=== PATIENT | female | born 1940 | race American Indian/Alaskan Native ===

== ENCOUNTER 2017-02-10 01:58 | Emergency (ER) | payer SELFPAY ==
[2017-02-10] MEDS ORDERED: CATAPRES ONE (02:49)
[2017-02-10] MEDS ORDERED: CATAPRES PO ONE (02:50)
[2017-02-10 03:12] LABS: Basophils % (Auto) 1.1 % (0.0-1.8); Eosinophils % (Auto) 5.1 % (0.0-4.3); Hematocrit 44.3 % (30.3-42.9); Hemoglobin 14.9 gm/dl (10.1-14.3); Mean Corpuscular HGB Conc 34 % (30-34); Mean Corpuscular Hemoglobin 32 pg (28-32); Mean Corpuscular Volume 95 fl (79-97); Platelet Count 241 K/mm3 (140-440); Red Blood Count 4.64 M/mm3 (3.65-5.03); Red Cell Distribution Width 13.2 % (13.2-15.2); White Blood Count 7.2 K/mm3 (4.5-11.0)
[2017-02-10 04:22] LABS: BUN/Creatinine Ratio 17; Blood Urea Nitrogen 12 mg/dL (7-17); Calcium 9.7 mg/dL (8.4-10.2); Carbon Dioxide 23 mmol/L (22-30); Glucose 110 mg/dL (65-100); Sodium 136 mmol/L (137-145)
[2017-02-10 04:24] LABS: Anion Gap 23 mmol/L; Potassium 5.5 mmol/L (3.6-5.0)
[2017-02-10] MEDS ORDERED: KIONEX PO ONE (07:28)
--- NOTE | 2017-02-10 07:49 | Emergency Department Report ---
HPI - General Chief Complaint: BP Check / Ring removal req Time Seen by Provider: 02/10/17 07:13 - HPI HPI: This is a 76 year-old female presents to the emergency department with complaint of elevated blood pressure. The patient does have a previous history of hypertension and used to be on amlodipine 5 mg daily. However she has not had a primary care doctor or seen a doctor in about a year or so. She does not feel that her blood pressure was not elevated or that she needed the medication and stopped it on her own. Instead, she takes different vitamins and/or supplements. However the patient had some issues a few weeks ago with some chest discomfort that could've been esophageal issues and these issues have since resolved, except for it has made her more aware of her blood pressure. The blood pressure was getting up towards systolic 200 recently so she started taking her amlodipine again which did help. Currently she otherwise denies any chest pain, headache, vision change, slurred speech, shortness of breath or any other physical complaints at this time. She denies any tobacco, illicit drug use or abuse, alcohol use. No recent travel or sick contacts at home. ED Past Medical Hx - Past Medical History Hx Hypertension: Yes - Surgical History Past Surgical History?: No - Medications Home Medications: Home Medications Medication Instructions Recorded Confirmed Last Taken Type amLODIPine [Norvasc] 5 mg PO DAILY #30 tab 02/10/17 Unknown Rx ED Review of Systems ROS: Stated complaint: HIGH BLOOD PRESSURE Other details as noted in HPI Comment: All other systems reviewed and negative Constitutional: denies: chills, fever Eyes: denies: eye pain, eye discharge, vision change ENT: as per HPI Respiratory: denies: cough, shortness of breath, wheezing Cardiovascular: denies: chest pain, palpitations Gastrointestinal: denies: abdominal pain, nausea, diarrhea Genitourinary: denies: urgency, dysuria, discharge Musculoskeletal: denies: back pain, joint swelling, arthralgia Skin: denies: rash, lesions Neurological: denies: headache, weakness, paresthesias Physical Exam - Physical Exam Vital Signs: Vital Signs 02/10/17 02/10/17 02/10/17 02:07 02:10 02:12 Temperature 98.1 F 98.1 F 98.1 F Pulse Rate 78 78 Respiratory 18 18 18 Rate Blood Pressure 228/112 228/112 Blood Pressure 228/112 [Right] O2 Sat by Pulse 98 98 Oximetry 02/10/17 02/10/17 02/10/17 02:51 03:49 05:21 Temperature Pulse Rate 74 60 Respiratory 18 18 Rate Blood Pressure 228/112 Blood Pressure 134/75 142/72 [Right] O2 Sat by Pulse 96 Oximetry Physical Exam: GENERAL: The patient is well-developed well-nourished. HENT: Normocephalic. Atraumatic. Patient has moist mucous membranes. EYES: Extraocular motions are intact. Pupils equal reactive to light bilaterally. NECK: Supple. Trachea is midline. CHEST/LUNGS: Clear to auscultation. There is no respiratory distress noted. HEART/CARDIOVASCULAR: Regular. There is no tachycardia. There is no gallop rub or murmur. ABDOMEN: Abdomen is soft, nontender. Patient has normal bowel sounds. There is no abdominal distention. SKIN: Skin is warm and dry. NEURO: The patient is awake, alert, and oriented. The patient is cooperative. The patient has no focal neurologic deficits. The patient has normal speech. MUSCULOSKELETAL: There is no tenderness or deformity. There is no limitation range of motion. There is no evidence of acute injury. ED Course Vital Signs 02/10/17 02/10/17 02/10/17 02:07 02:10 02:12 Temperature 98.1 F 98.1 F 98.1 F Pulse Rate 78 78 Respiratory 18 18 18 Rate Blood Pressure 228/112 228/112 Blood Pressure 228/112 [Right] O2 Sat by Pulse 98 98 Oximetry 02/10/17 02/10/17 02/10/17 02:51 03:49 05:21 Temperature Pulse Rate 74 60 Respiratory 18 18 Rate Blood Pressure 228/112 Blood Pressure 134/75 142/72 [Right] O2 Sat by Pulse 96 Oximetry ED Medical Decision Making - Lab Data Result diagrams: 02/10/17 02:54 02/10/17 02:54 - EKG Data -: EKG Interpreted by [facility] EKG shows normal: sinus rhythm, axis, intervals, QRS complexes, ST-T waves Rate: normal - EKG Data When compared to previous EKG there are: no significant change Interpretation: normal EKG, unchanged when compared t (02/10/12) - Medical Decision Making 76-year-old female presents with very elevated blood pressure but otherwise asymptomatic. She was given a low dose of Catapres and her blood pressure came down to a much more reasonable if not normal level. Because of the complaint of previous chest discomfort 1-2 weeks ago, the patient had more of a chest pain workup through triage that showed negative troponins 3, an EKG that does not show any signs of ST elevation RI or dysrhythmia and mostly unremarkable labs. However the potassium did come back at 5.5 which is slightly elevated above the normal level. Patient does admit to eating multiple bananas each day as part of a smoothie but also takes multiple supplements and/or vitamins and we do not know what her in them or their known side effects. The patient was given a low dose of Kayexalate to bring her potassium down to a more reasonable level. She will be restarted on her amlodipine at a middle dose of 5 mg. She will keep a blood pressure log. If this is not controlling her blood pressure she will double the dose to 10 mg. She has been given multiple referrals for primary care physicians and clinics and encouraged to follow up in the next few days. She will return to the ER with any worsening of her symptoms or any acute distress. - Differential Diagnosis hypertensive emergency, RI, hyperkalemia, dysrhythmia Critical Care Time: No Critical care attestation.: If time is entered above; I have spent that time in minutes in the direct care of this critically ill patient, excluding procedure time. ED Disposition Clinical Impression: Hyperkalemia Hypertension Qualifiers: Hypertension type: essential hypertension Qualified Code(s): I10 - Essential ( primary) hypertension Disposition: DC-01 TO HOME OR SELFCARE Is pt being admited?: No Condition: Stable Instructions: Hyperkalemia (ED), Hypertension (ED) Additional Instructions: Please follow up with a primary care physician in the next few days. Return to the emergency Department with any worsening of your symptoms or any acute distress. I would recommend looking up a list of potassium rich foods and eating them only in moderation. Please try and stay away from foods that are high in salt and caffeinated products. Keep a blood pressure log. Prescriptions: amLODIPine [Norvasc] 5 mg PO DAILY #30 tab Referrals: MISHA COY MD [Staff Physician] - 3-5 Days VIDHI ARREGUIN MD [Staff Physician] - 3-5 Days [facility] [Outside] - 3-5 Days [facility] [Outside] - 3-5 Days [facility] [Outside] - 3-5 Days Time of Disposition: 08:35
[2017-02-10 08:42] VITALS: BP 127/81
== END 2017-02-10 09:21 | disposition home or self-care (01) ==
LOC: ED 01:58
DX: I10 Essential (primary) hypertension (principal); E87.5 Hyperkalemia
CPT/HCPCS: 36415; 80048; 84484; 85025; 93005; 93010; 99284